=== PATIENT | female | born 1995 | race Two or more races ===

== ENCOUNTER 2022-12-10 19:15 | Inpatient (IN) | payer OTHER ==
[~2022-12-10] VITALS: Ht 162.6 cm; Wt 64.4 kg
[2022-12-11] MEDS ORDERED: PRENATAL + DHA1 EAC1 PO (09:35)
== END 2022-12-13 14:31 | disposition home or self-care (01) | DRG 833 ==
LOC: LDR 19:15
PROVIDERS: ADMIT Obstetrics & Gynecology Obstetrics; ATTEND Obstetrics & Gynecology Obstetrics
PROC: 4A1HXCZ Monitoring of Products of Conception, Cardiac Rate, External Approach (ICD-10-PCS; principal; 2022-12-10)
PROC: BY4FZZZ Ultrasonography of Third Trimester, Single Fetus (ICD-10-PCS; 2022-12-10)
DX: O13.3 Gestational [pregnancy-induced] hypertension without significant proteinuria, third trimester (principal); Z3A.34 34 weeks gestation of pregnancy; Z20.822 Contact with and (suspected) exposure to COVID-19

== ENCOUNTER → 2022-12-17 | Outpatient (CLI) | payer OTHER ==
[~2022-12-17] MED LIST: PRENATAL + DHA1 EAC1 PO
== END | disposition home or self-care (01) ==
LOC: NST 10:36
PROVIDERS: ATTEND Obstetrics & Gynecology Obstetrics
DX: Z34.83 Encounter for supervision of other normal pregnancy, third trimester (principal)

== ENCOUNTER 2022-12-24 17:38 | Inpatient (IN) | payer OTHER ==
[~2022-12-24] VITALS: Ht 167.6 cm; Wt 2.3 kg
== END 2022-12-30 17:08 | disposition home or self-care (01) | DRG 788 ==
LOC: OBS/DEL 17:38 → LDR 12-25 08:55 → O/R 12-27 12:08 → OB/GYN 12-27 12:41
PROVIDERS: ADMIT Obstetrics & Gynecology Obstetrics; ATTEND Obstetrics & Gynecology Obstetrics
PROC: BY4FZZZ Ultrasonography of Third Trimester, Single Fetus (ICD-10-PCS; 2022-12-24)
PROC: 4A1HXCZ Monitoring of Products of Conception, Cardiac Rate, External Approach (ICD-10-PCS; 2022-12-25)
PROC: 10D00Z1 Extraction of Products of Conception, Low, Open Approach (ICD-10-PCS; principal; 2022-12-27 08:30)
DX: O34.211 Maternal care for low transverse scar from previous cesarean delivery (principal); O16.4 Unspecified maternal hypertension, complicating childbirth; Z3A.37 37 weeks gestation of pregnancy; Z37.0 Single live birth